=== PATIENT | female | born 1970 | race American Indian/Alaskan Native ===

== ENCOUNTER 2021-04-01 18:29 | Emergency (ER) | payer MEDICARE ==
[2021-04-01 18:50] VITALS: BP 139/88
[2021-04-01] MEDS ORDERED: HYDROcodone/ACETAMINOPHEN 5-325 MG TAB PO STA (20:02)
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
== END 2021-04-02 00:35 | disposition home or self-care (01) ==
LOC: ED 18:29
DX: M79.18 Myalgia, other site (principal); M54.2 Cervicalgia; M54.9 Dorsalgia, unspecified; V89.2XXA Person injured in unspecified motor-vehicle accident, traffic, initial encounter; Y93.89 Activity, other specified; Y92.488 Other paved roadways as the place of occurrence of the external cause; Y99.8 Other external cause status
CPT/HCPCS: 99282